=== PATIENT | male | born 1975 | race Caucasian/White ===

== ENCOUNTER → 2019-09-15 | Outpatient (CLI) | payer OTHER ==
--- NOTE | 2019-09-15 16:57 | US ---
EXAMINATION TYPE: US venous doppler duplex LE RT DATE OF EXAM: 09/15/2019 4:44 PM COMPARISON: NONE CLINICAL HISTORY: R60.0 LOCALIZED EDEMA, M25.571 RIGHT ANKLE PAIN. SIDE PERFORMED: Right TECHNIQUE: The lower extremity deep venous system is examined utilizing real time linear array sonog jillian with graded compression, doppler sonography and color-flow sonography. VESSELS IMAGED: External Iliac Vein (EIV) Common Femoral Vein Deep Femoral Vein Greater Saphenous Vein * Femoral Vein Popliteal Vein Small Saphenous Vein * Proximal Calf Veins (* superficial vessels) Right Leg: Negative for DVT GSV also scanned per order. Unable to visualize PTV's due to large body habitus and swelling IMPRESSION: No evidence of deep venous thrombosis in the right leg.
== END | disposition home or self-care (01) ==
LOC: RADUSWWP 15:37
PROVIDERS: ATTEND Physical Medicine & Rehabilitation
DX: M25.571 Pain in right ankle and joints of right foot (principal)

== ENCOUNTER 2022-10-21 11:21 | Day surgery (SDC) | payer BC, OTHER ==
[~2022-10-21 11:21] MED LIST: LACTATED RINGERS 1,000 ML IV SCH; LIDOCAINE 1% (10MG/ML) FOR IV START INTRADERMA PRN
[2022-10-21 11:45] VITALS: TEMP 97.5
[2022-10-21 11:58] LABS: Glucose,Whole Blood 92 mg/dL (70-110)
[2022-10-21] MEDS ORDERED: PROPOFOL 10 MG/ML 20 ML VIAL IV ONE (12:11)
--- NOTE | 2022-10-21 12:13 | P.GSHP ---
History of Present Illness H&P Date: 10/21/22 Chief Complaint: Colon cancer screening 38-year-old male here today for colonoscopy. He has not had one previously. Family history of colon polyps in his father and brother. No bowel complaints. Past Medical History Past Medical History: Deep Vein Thrombosis (DVT) Additional Past Medical History / Comment(s): dvt lft leg History of Any Multi-Drug Resistant Organisms: None Reported Additional Past Surgical History / Comment(s): left scrotal varicele x 2 Past Anesthesia/Blood Transfusion Reactions: No Reported Reaction Smoking Status: Never smoker Medications and Allergies Home Medications Medication Instructions Recorded Confirmed Type No Known Home Medications 10/16/22 10/21/22 History Allergies Allergy/AdvReac Type Severity Reaction Status Date / Time apixaban [From Eliquis] Allergy Severe Rash/Hives Verified 10/21/22 11:36 Surgical - Exam Vital Signs Temp Pulse Resp BP Pulse Ox 97.5 F L 76 18 149/85 97 10/21/22 11:42 10/21/22 11:42 10/21/22 11:42 10/21/22 11:42 10/21/22 11:42 Physical exam: General: Well-developed, well-nourished HEENT: Normocephalic, sclerae nonicteric Abdomen: Nontender, nondistended Extremities: No edema Neuro: Alert and oriented Assessment and Plan (1) Colon cancer screening Narrative/Plan: Will proceed with colonoscopy at this time. Current Visit: Yes Status: Acute Code(s): Z12.11 - ENCOUNTER FOR SCREENING FOR MALIGNANT NEOPLASM OF COLON SNOMED Code(s): 909011445
--- NOTE | 2022-10-21 12:51 | P.PCN ---
Date of Procedure: 10/21/22 Procedure(s) Performed: PREOPERATIVE DIAGNOSIS: Colon cancer screening, family history of colon polyps POSTOPERATIVE DIAGNOSIS: Small ascending colon polyp, tortuous colon PROCEDURE: Colonoscopy with snare polypectomy ANESTHESIA: MAC SURGEON: Vinnie Beavers M.D. SPECIMENS: Polyp ENDOSCOPIC PROCEDURE: The patient was placed on the endoscopy table in the left decubitus position. The Olympus colonoscope was inserted into the anus and passed under direct visualization to the base of the cecum. The appendiceal orifice was visualized. From that point the scope was slowly withdrawn inspecting all surfaces carefully. There were no neoplastic inflammatory or polypoid lesions throughout the cecum. In the ascending colon a small polyp was removed using the snare with cautery technique. The remainder of the ascending transverse descending sigmoid and rectum appeared normal. There was no visible diverticulosis. The patient did have significant tortuosity of the colon. Digital rectal examination was normal. The patient was taken to the recovery room in stable condition per anesthesia guidelines. RECOMMENDATIONS: Await biopsy results. Tentatively plan repeat colonoscopy 5 years.
[2022-10-21 12:58] VITALS: RESP 16
[2022-10-21 13:39] VITALS: BP 131/85; PULSE 61
== END 2022-10-21 13:58 | disposition home or self-care (01) ==
LOC: ORWHC2ENDO 11:21
PROVIDERS: ATTEND Surgery
DX: Z12.11 Encounter for screening for malignant neoplasm of colon (principal); D12.2 Benign neoplasm of ascending colon; Z83.71 Family history of colonic polyps; Z86.718 Personal history of other venous thrombosis and embolism
CPT/HCPCS: 88305; 45385; J2704